=== PATIENT | male | born 1995 | race Two or more races ===

== ENCOUNTER 2016-11-18 23:53 | Emergency (ER) | payer OTHER ==
[2016-11-19 02:03] LABS: ABSOLUTE NEUTROPHIL COUNT 5.6 K/mm3 (1.8-7.7); BASO # 0.1 K/mm3 (0.0-0.2); BASO % 0.6 % (0.2-1.0); EOS # 0.1 (0.0-0.5); EOS % 1.4 % (0.9-2.9); HEMATOCRIT 48.4 % (32.0-52.0); IMM NEUT # 0.1 K/mm3 (0-0.2); IMM NEUT% 0.5 % (0-1); LYMPH # 3.5 (1.0-4.8); LYMPH % 35.7 % (15-45); MEAN CELL VOLUME 89.6 fl (80.0-94.0); MEAN CORPUSCULAR HEMOGLOBIN 29.6 pg (27.0-31.0); MEAN CORPUSCULAR HGB CONC 33.1 g/dl (33.0-37.0); MEAN PLATELET VOLUME 11.9 fl (7.4-10.4); MONO # 0.5 (0.0-0.8); MONO % 5.2 % (4-12); NEUT % 56.6 % (43-75); PLATELET COUNT 216 K/mm3 (130-400); RED CELL DISTRIBUTION WIDTH 12.9 % (11.5-14.5)
[2016-11-19 02:20] LABS: ALB/GLOB RATIO 1.5 (>1.0); ALBUMIN 4.8 gm/dL (3.5-5.7); CALCIUM 9.7 mg/dL (8.6-10.3)
--- NOTE | 2016-11-19 07:33 | RAD ---
Name: RAJNI ESPINOZA Exam: Two-view chest Comparison: None Clinical history: Cough and sore throat Findings: 2 views of the chest are submitted. The heart mediastinum and hilar structures are within normal limits. There is no failure, infiltrate, pleural effusion or pneumothorax. Regional skeleton is within normal limits. Impression: No acute cardiopulmonary process
== END 2016-11-19 02:58 | disposition home or self-care (01) ==
LOC: ED 23:53
DX: R09.1 Pleurisy (principal)